=== PATIENT | female | born 1965 | race Caucasian/White ===

== ENCOUNTER 2016-06-25 13:47 | Emergency (ER) | payer BC, OTHER ==
[2016-06-25 15:27] VITALS: BP 153/91
[2016-06-25] MEDS ORDERED: Naproxen TAB* 250 MG PO ONE (16:29)
--- NOTE | 2016-06-25 16:34 | UC ---
Head Injury HPI - HPI Summary HPI Summary: NURSES NOTE: C/O HEAD INJURY. PT STATES A COUPLE OF BOXES FELL ON HER HEAD ON AT WORK. NO LOC. C/O HEADACHE, NAUSEA, BLURRED VISION, "FEELING LIKE I' M IN A FOG". HPI: 50 female presents complaining of diffuse headache that began exactly 1 week ago after experiencing an injury at work (06/18/16). 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 She denies LOC. She states since then she has had dull ache in her head that sometimes turns into a throbbing headache. She has associated intermittent episodes of blurred vision, nausea, loss of concentration, confusion and episodes of dizziness where she has to hold onto surrounding ham , etc when standing. She states these episodes come and go but the headache is always there. She has been putting off the symptoms and trying to take OTC tylenol and naproxen for pain. She has not had much of any relief. She has continued to work for the past week. She is familiar with concussions due to her children being athletes and having them as well. She feels as though this is what it is but she assumed she would start to feel better by now. Denies loss of vision, vomiting, falling, difficulty breathing, chest pain and problems with gait. Admits to having a contusion on the top of her head the day after the incident that has subsided. Feels as though she "is in a fog". Admits to feeling anxious, photophobia and sometimes has trouble sleeping at night. She is not on blood thinners. - History Of Current Complaint Chief Complaint: UCHeadInjury Stated Complaint: HEADACHE Time Seen by Provider: 06/25/16 15:54 Hx Obtained From: Patient Hx Last Menstrual Period: 2 MONTHS AGO ?: No Onset/Duration: Sudden Onset, Lasting Weeks - 1 week Pain Intensity: 5 Pain Scale Used: 0-10 Numeric Character: Dull, Throbbing, Pressure, Other - aching Aggravating Factor(s): Nothing Alleviating Factor(s): Other - OTC medications Associated Signs And Symptoms: Positive: Confusion, Memory Loss, Nausea. Negative: LOC (Time In Secs./Mins/Hrs), Seizure, Epistaxis, Neck Pain, Vomiting - Allergies/Home Medications Allergies/Adverse Reactions: Allergies Allergy/AdvReac Type Severity Reaction Status Date / Time No Known Allergies Allergy Verified 06/25/16 15:27 Home Medications: Home Medications Acetaminophen 1,000 mg PO PRN 06/25/16 [History] Multiple Vitamins W/ Minerals [Vitamins & Minerals] 1 tab PO 06/25/16 [History] PMH/Surg Hx/FS Hx/Imm Hx Previously Healthy: Yes Cancer History Of: Denies: Breast Cancer - Surgical History Surgical History: Yes Surgery Procedure, Year, and Place: TONSILLECTOMY, M[facility]ANOMA SURGERY - Social History Alcohol Use: Occasionally Substance Use Type: None Smoking Status (MU): Never Smoked Tobacco Have You Smoked in the Last Year: No Review of Systems Constitutional: Fatigue Skin: Negative Eyes: Blurred Vision, Photophobia ENT: Negative Respiratory: Negative Cardiovascular: Negative Gastrointestinal: Negative Genitourinary: Negative Motor: Negative Neurovascular: Negative Musculoskeletal: Negative Neurological: Headache Psychological: Anxious All Other Systems Reviewed And Are Negative: Yes Physical Exam Triage Information Reviewed: Yes Appearance: Well-Appearing - A&O x3, No Pain Distress, Well-Nourished Vital Signs: Initial Vital Signs Pulse 89 06/25/16 15:22 Resp 16 06/25/16 15:22 BP 153/91 06/25/16 15:22 Pulse Ox 100 06/25/16 15:22 elevated BP, patient is in pain Vital Signs Reviewed: Yes Eye Exam: Normal - fundoscopic exam normal, visual acuity 20/20 with glasses both eyes. PERRLA. Eyes: Positive: Conjunctiva Clear ENT: Positive: Normal ENT inspection, Hearing grossly normal, Pharynx normal, TMs normal Dental Exam: Normal Neck: Positive: Supple, Nontender, No Lymphadenopathy Respiratory: Positive: Chest non-tender, Lungs clear, Normal breath sounds, No respiratory distress Cardiovascular: Positive: RRR, No Murmur, Pulses Normal, Brisk Capillary Refill Abdominal Exam: Normal Abdomen Description: Positive: Nontender, Soft Bowel Sounds: Positive: Present Musculoskeletal Exam: Normal Neurological Exam: Normal - A&Ox3, memory intact. Diagnostics - Radiology CT- head without contrast Xray Interpretation: No Acute Changes Radiology Interpretation Completed By: Radiologist - NO ACUTE INTRACRANIAL PATHOLOGY. Head Injury Course/Dx - Course Course Of Treatment: was given naproxen while in office to help with headache. last dose of tylenol was 1000mg around 6:30am this morning. Patient did not have much relief. Ct ordered and negative for bleeding or fracture. Patient was educated on post-concussive syndrome symptoms and what to expect. normal physical exam findings and neuro exam. told to follow up with her primary care provider next week. rest and off-work for the next 5 days. - Differential Dx/Diagnosis Differential Diagnosis/HQI/PQRI: Cerebral Contusion, Concussion Without LOC, Contusion Provider Diagnoses: concussion w/ LOC, post-concussive syndrome Discharge - Discharge Plan Condition: Stable Disposition: HOME Prescriptions: Ibuprofen TAB* [Motrin TAB* 600 MG] 600 mg PO Q8H PRN #20 tab PRN Reason: Headache Ondansetron ODT TAB* [Zofran Odt TAB*] 4 mg PO Q6H PRN #10 tab.odt PRN Reason: Nausea Patient Education Materials: Post Concussion Syndrome (ED), Concussion (ED) Forms: *Work Release Referrals: Ana Maria Washington NP [Primary Care Provider] - Additional Instructions: REST! Try to avoid high-stimulating activities such as watching tv, reading, computer use etc. Get plenty of sleep. Try melatonin OTC if you are having trouble sleeping. Take this an hour or so before you plan on going to bed. Take prescribed Ibuprofen as needed to help with headache and Zofran as needed for nausea. Drink plenty of fluids. Try alternating OTC medication Ibuprofen or Aleve/Tylenol/Excedrin. Do not mix these medications with each-other in the same day. Follow-up with your primary care provider next week. If symptoms worsen please seek medical attention immediately.
--- NOTE | 2016-06-25 17:00 | RAD ---
HISTORY: Trauma, concussion symptoms, dizziness, headache COMPARISONS: None TECHNIQUE: Multiple contiguous axial CT scans were obtained of the head without intravenous contrast. FINDINGS: HEMORRHAGE/INFARCT: There is no hemorrhage or acute infarct. MASSES/SHIFT: There is no mass or shift. EXTRA-AXIAL SPACES: There are no extra-axial fluid collections. SULCI AND VENTRICLES: The sulci and ventricles are normal in size and position for the patient's stated age. CEREBRUM: There are no focal parenchymal abnormalities. BRAINSTEM: There are no focal parenchymal abnormalities. CEREBELLUM: There are no focal parenchymal abnormalities. VESSELS: The vessels are grossly normal. PARANASAL SINUSES: The paranasal sinuses are clear. ORBITS: The orbits are unremarkable. BONES AND SOFT TISSUE: No bone or soft tissue abnormalities are noted. OTHER: None IMPRESSION: NO ACUTE INTRACRANIAL PATHOLOGY.
== END 2016-06-25 17:47 | disposition home or self-care (01) ==
LOC: UCEAST 13:47
DX: F07.81 Postconcussional syndrome (principal); G44.309 Post-traumatic headache, unspecified, not intractable
CPT/HCPCS: 70450; 99212; A9270-GY; G0463